=== PATIENT | male | born 2005 ===

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

== ENCOUNTER 2023-03-12 21:30 | Emergency (ER) | payer MEDICAID ==
[~2023-03-12] VITALS: Ht 167.6 cm; Wt 54.4 kg
[2023-03-12 21:51] VITALS: BP 144/94
== END 2023-03-13 00:15 | disposition home or self-care (01) ==
LOC: ER 21:30
DX: L50.9 Urticaria, unspecified (principal); T45.0X5A Adverse effect of antiallergic and antiemetic drugs, initial encounter; Z88.6 Allergy status to analgesic agent
CPT/HCPCS: 99283; A9270; J1100

== ENCOUNTER 2024-04-27 19:30 | Emergency (ER) | payer OTHER ==
[~2024-04-27] VITALS: Ht 165.1 cm; Wt 56.7 kg
[2024-04-27 19:57] VITALS: BP 133/89
[2024-04-27 21:12] LABS: CORONAVIRUS COVID-19 AG Negative (NEGATIVE); INFLUENZA A AG Positive (NEGATIVE); INFLUENZA B AG Negative (NEGATIVE)
== END 2024-04-27 21:31 | disposition home or self-care (01) ==
LOC: ER 19:30
PROVIDERS: Student in an Organized Health Care Education/Training Program
DX: J10.1 Influenza due to other identified influenza virus with other respiratory manifestations (principal); Z88.6 Allergy status to analgesic agent; Z88.1 Allergy status to other antibiotic agents; Z88.8 Allergy status to other drugs, medicaments and biological substances
CPT/HCPCS: 87428-QW; 99283